=== PATIENT | male | born 1950 | race Caucasian/White ===

== ENCOUNTER → 2021-08-08 | Outpatient (RCR) | payer MEDICARE | LOC: PT 08-04 07:51 | PROVIDERS: ATTEND Physical Medicine & Rehabilitation | DX: M48.061 Spinal stenosis, lumbar region without neurogenic claudication (principal); M54.16 Radiculopathy, lumbar region ==

== ENCOUNTER 2021-09-05 06:59 | Outpatient (RCR) | payer MEDICARE | END 2021-09-07 | LOC: PT 06:59 | PROVIDERS: ATTEND Physical Medicine & Rehabilitation | DX: M48.061 Spinal stenosis, lumbar region without neurogenic claudication (principal); M54.16 Radiculopathy, lumbar region | CPT/HCPCS: 97139 ==

== ENCOUNTER 2021-10-05 07:00 | Outpatient (RCR) | payer MEDICARE | END 2021-10-08 | LOC: PT 07:00 | PROVIDERS: ATTEND Physical Medicine & Rehabilitation | DX: M48.061 Spinal stenosis, lumbar region without neurogenic claudication (principal); M54.16 Radiculopathy, lumbar region | CPT/HCPCS: 97139 ==

== ENCOUNTER 2021-10-19 06:54 | Outpatient (RCR) | payer MEDICARE | END 2021-11-08 | LOC: PT 06:54 | PROVIDERS: ATTEND Physical Medicine & Rehabilitation | DX: M48.061 Spinal stenosis, lumbar region without neurogenic claudication (principal); M54.16 Radiculopathy, lumbar region ==

== ENCOUNTER → 2022-03-30 | Outpatient (CLI) | payer MEDICARE, BC | LOC: CARD 08:45 | PROVIDERS: ATTEND Nurse Practitioner | DX: I65.23 Occlusion and stenosis of bilateral carotid arteries (principal) | CPT/HCPCS: 93880 ==

== ENCOUNTER 2023-01-03 07:00 | Outpatient (RCR) | payer MEDICARE, BC | END 2023-01-08 | LOC: PT 07:00 | PROVIDERS: ATTEND Neurological Surgery | DX: M48.061 Spinal stenosis, lumbar region without neurogenic claudication (principal); M62.81 Muscle weakness (generalized) ==

== ENCOUNTER 2023-06-13 07:00 | Outpatient (RCR) | payer MEDICARE, BC | END 2023-07-09 | LOC: PT 07:00 | PROVIDERS: ATTEND Neurological Surgery | DX: Z98.890 Other specified postprocedural states (principal); M54.50 Low back pain, unspecified; R53.1 Weakness ==

== ENCOUNTER 2024-02-04 07:00 | Outpatient (RCR) | payer MEDICARE, BC | END 2024-02-08 | LOC: PT 07:00 | PROVIDERS: ATTEND Neurological Surgery | DX: Z98.1 Arthrodesis status (principal); R53.81 Other malaise; M62.81 Muscle weakness (generalized); R26.2 Difficulty in walking, not elsewhere classified; M53.86 Other specified dorsopathies, lumbar region ==

== ENCOUNTER 2024-03-05 07:00 | Outpatient (RCR) | payer MEDICARE, BC | END 2024-03-10 | LOC: PT 07:00 | PROVIDERS: ATTEND Neurological Surgery | DX: R53.81 Other malaise (principal); Z98.1 Arthrodesis status ==

== ENCOUNTER 2024-04-09 07:00 | Outpatient (RCR) | payer MEDICARE, BC | END 2024-04-10 | LOC: PT 07:00 | PROVIDERS: ATTEND Neurological Surgery | DX: Z98.1 Arthrodesis status (principal); M62.81 Muscle weakness (generalized); R26.2 Difficulty in walking, not elsewhere classified; M53.86 Other specified dorsopathies, lumbar region; R53.81 Other malaise ==

== ENCOUNTER 2024-04-16 07:00 | Outpatient (RCR) | payer MEDICARE, BC | END 2024-05-08 | LOC: PT 07:00 | PROVIDERS: ATTEND Neurological Surgery | DX: Z47.1 Aftercare following joint replacement surgery (principal); Z96.652 Presence of left artificial knee joint ==